=== PATIENT | male | born 1960 | race Caucasian/White ===

== ENCOUNTER 2018-12-07 06:21 | Day surgery (SDC) | payer OTHER ==
[~2018-12-07] VITALS: Ht 175.3 cm; Wt 86.2 kg
[2018-12-07] MEDS ORDERED: LISI5TAB18 PO (08:47)
[2018-12-07] MEDS ORDERED: fentaNYL 0.05 MG/ML VIAL ONE (10:42)
[2018-12-07] MEDS ORDERED: LIDOCAINE 2% 100 MG/5 ML UJET TP ONE (10:42)
[2018-12-07] MEDS ORDERED: fentaNYL 0.05 MG/ML VIAL IVP ONE (14:30)
== END 2018-12-07 11:40 | disposition home or self-care (01) ==
LOC: MDS 06:21 → MMU 06:21 → MDS 11:40
PROVIDERS: ATTEND Internal Medicine Gastroenterology
DX: K64.8 Other hemorrhoids (principal); K62.5 Hemorrhage of anus and rectum
CPT/HCPCS: 45330; J3010